=== PATIENT | male | born 1970 | race Caucasian/White ===

== ENCOUNTER 2017-05-21 12:16 | Emergency (ER) | payer SELFPAY ==
[~2017-05-21 12:16] MED LIST: LORTA5 PO; ZOFR4TAB3 SL
== END 2017-05-21 12:51 | disposition left against medical advice (07) ==
LOC: PHED 12:16
DX: R68.89 Other general symptoms and signs (principal)
CPT/HCPCS: 99281

== ENCOUNTER 2017-05-23 10:50 | Emergency (ER) | payer SELFPAY ==
[~2017-05-23] VITALS: Ht 182.9 cm; Wt 85.9 kg
[2017-05-23 10:53] VITALS: BP 146/78; PULSE 121; RESP 16; TEMP 97.8; O2SAT 95
[2017-05-23] MEDS ORDERED: BACT800T5 PO (11:36)
--- NOTE | 2017-05-23 11:37 | PD ---
HPI Chief Complaint: Skin Problem Time Seen by Provider: 11:05 Travel History International Travel<30 days: No Contact w/Intl Traveler<30days: No Traveled to known affect area: No History of Present Illness HPI 46-year-old male here with a painful inflamed cyst to his left back. Patient reports this is his present for greater than a year. Over the last week it has become increasingly more swollen, red and painful. He denies fever or chills. Symptom severity is moderate. Pain is aggravated by palpation of the area. No alleviating factors. PFSH Past Medical History Arthritis: Yes (HANDS) Cardiovascular Problems: No Diminished Hearing: No Genitourinary: No Musculoskeletal: No Neurologic: No Reproductive: No Respiratory: No Seizures: Yes (DURING PREVIOUS ETOH WITHDRAWL) Tetanus Vaccination: < 5 Years Influenza Vaccination: No Past Surgical History Surgical History: No Previous Surgery Social History Alcohol Use: Yes (1/2 [place]/DAY, 6-10 beers daily) Tobacco Use: Yes (2PPD) Substance Use: No Allergies-Medications (Allergen,Severity, Reaction): Coded Allergies: No Known Allergies (Verified Adverse Reaction, Unknown, 05/23/17) Reported Meds & Prescriptions Reported Meds & Active Scripts Active Bactrim DS (Sulfamethoxazole-Trimethoprim) 800-160 Mg Tab 1 Tab PO BID Review of Systems Except as stated in HPI: all other systems reviewed are Neg General / Constitutional: No: Fever Physical Exam Narrative GENERAL: Alert and well-appearing male. SKIN: Warm and dry. 4 x 3 cm raised fluctuant and inflamed cyst to the left upper back. No drainage. HEAD: Normocephalic. EYES: No injection or drainage. NECK: Supple, trachea midline. No JVD or lymphadenopathy. CARDIOVASCULAR: Regular rate and rhythm. RESPIRATORY: Breath sounds equal bilaterally. No accessory muscle use. GASTROINTESTINAL: Abdomen soft, non-tender, nondistended. MUSCULOSKELETAL: No cyanosis, or edema. BACK: No CVA tenderness. Data Data Last Documented VS Vital Signs Date Time Temp Pulse Resp B/P (MAP) Pulse Ox O2 Delivery O2 Flow Rate FiO2 05/23/17 10:53 97.8 121 16 146/78 (100) 95 MDM Medical Decision Making Medical Screen Exam Complete: Yes Emergency Medical Condition: Yes Differential Diagnosis Inflamed sebaceous cyst, abscess, cellulitis Narrative Course 46-year-old male here with an inflamed sebaceous cyst to his left back. Incision and drainage was performed. Patient tolerated procedure well. The area appears mildly infected. Patient we put on Bactrim. Procedures Procedure Narrative INCISION AND DRAINAGE OF ABSCESS: The area was prepped and was sterilely draped. A subcutaneous wheal of 1 % Xylocaine used to anesthetize the area properly. A number [11] scalpel was used to make a 1 -cm incision across the area of the abscess. The abscess was drained, complex loculations were broken down, and irrigated with normal saline. Sterile dressing applied. Diagnosis Primary Impression: Inflamed sebaceous cyst Referrals: Primary Care Physician Additional Instructions: Antibiotics as prescribed. Cleansed the area daily with soap and water. Apply clean dry dressing. Scripts Sulfamethoxazole-Trimethoprim (Bactrim DS) 800-160 Mg Tab 1 TAB PO BID for Infection, #20 TAB 0 Refills Prov: Henny Weeks 05/23/17 Disposition: 01 DISCHARGE HOME Condition: Stable Henny Weeks May 23, 2017 11:37
== END 2017-05-23 11:44 | disposition home or self-care (01) ==
LOC: PHEFT 10:50
DX: L72.3 Sebaceous cyst (principal); F17.200 Nicotine dependence, unspecified, uncomplicated
CPT/HCPCS: 10060